=== PATIENT | male | born 1955 | race Caucasian/White ===

== ENCOUNTER 2017-07-05 13:21 | Emergency (ER) | payer OTHER ==
[~2017-07-05] VITALS: Ht 170.2 cm; Wt 88.6 kg
[~2017-07-05 13:21] MED LIST: ASCORBIC ACID500 M3 PO; ASPIRIN EC325 MG PO; CELECOXIB200 MG PO; CENTRUM ULTRA1 EACH PO; DICLOFENAC SODI75 MG PO; ENDOCET 5-3251 EACH PO; FEROSUL325 MG PO; SENNA-TIME S T1 EACH PO; TYLENOL WITH C1 EACH PO
[2017-07-05] MEDS ORDERED: NORCO 5/3251 TABLET PO (17:05)
[2017-07-05 17:21] VITALS: BP 148/90
== END 2017-07-05 17:22 | disposition home or self-care (01) ==
LOC: EME 13:21
DX: M25.461 Effusion, right knee (principal); Z96.653 Presence of artificial knee joint, bilateral
CPT/HCPCS: 73564; 99281; 99284